=== PATIENT | female | born 1995 | race African-American/Black ===

== ENCOUNTER 2025-01-10 15:07 | Inpatient (IN) ==
[2025-01-10 16:27] LABS: Hematocrit (blood only) 27.1 % (37.0-47.0); Hemoglobin 8.6 g/dl (12.0-16.0); Immature Granulocytes # (auto) 0.01 K/uL (0.01-0.20); Immature Granulocytes % (auto) 0.1 %; Mean Corpuscular Hemoglobin 28.3 pg (25.0-34.0); Mean Corpuscular Volume 89.1 fL (80.0-100.0); Platelet Count 553 K/uL (130-400); RDW Standard Deviation 54.0 fL (36.4-46.3); Red Blood Count 3.04 M/uL (4.20-5.40); White Blood Count 7.24 K/ul (4.8-10.8)
[2025-01-10 17:02] LABS: INR 1.0 (0.9-1.1); Partial Thromboplastin Time 23 Seconds (21-31); Prothrombin Time 10.4 Seconds (9.0-12.0)
--- NOTE | 2025-01-10 18:16 | Ultrasound Report ---
Clinical History: Cramping and abnormal bleeding Findings: Transabdominal and transvaginal pelvic sonography was performed. The endometrial stripe is thickened and heterogeneous, measuring approximately 2.5 cm. No uterine mass lesion is seen. Overall, the uterus measures 8.4 x 6.4 x 5.1 cm in size. There are nabothian cysts. There is some fluid within the endocervical and vaginal canals The left ovary measures 3.2 x 1.9 x 1.2 cm and contains small follicles. The right ovary measures 2.6 x 1.9 x 1.7 cm and contains small follicles also. Normal vascular flow was seen within both ovaries There is a small amount of free pelvic fluid. Impression: 1. Thickened and heterogeneous endometrium. This could be due to blood products, though endometrial hyperplasia, polyp, or carcinoma cannot be excluded. A follow-up ultrasound could be obtained to ensure resolution of this appearance 2. Nabothian cysts 3. Normal-appearing ovaries 4. Small amount of free pelvic fluid, which may be physiologic ACT 112: Positive. There are findings on this exam that require communication between the performing entity and the patient following Patient Test Result Information Act ([place] ACT 112) guidelines. Electronically signed by Nik Narvaez 01-10-2025 6:15 PM
[2025-01-10] MEDS: SODIUM CHLORIDE 0.9% 1,000 ML IV ONE (19:33)
--- NOTE | 2025-01-10 19:33 | Emergency Department Note ---
History of Present Illness General Chief complaint: Vaginal Bleeding Stated complaint: FATIGUE, LIGHT HEAD, HEAVY BLEEDING, ELEV HR Time Seen by Provider: 01/10/25 19:23 History of Present Illness This is a 29-year-old female who presents to the emergency department via private vehicle with complaints of "fatigue, lightheadedness, vaginal bleeding, elevated heart rate". The patient notes intermittent vaginal bleeding over the past few months. She does note history of blood transfusions secondary to vaginal bleeding. She feels chilled but denies any fevers, nausea or vomiting. Patient notes that she currently is on norethindrone acetate 5mg daily. She has been compliant with this medication. She states that over the past 3 days vaginal bleeding has increased in regard to volume. She states that when she stands clots will pass that she describes as being the size of her "fist". She notes that the bleeding seems to improve when she is sitting or laying supine. No anticoagulant use. No aspirin use. No NSAID use. No history of bleeding disorders. Home Medications Medication Instructions Recorded Confirmed Type folic acid 1 mg tablet 1 mg PO QAM #30 tabs 09/22/24 01/10/25 Rx ferrous sulfate 325 mg (65 mg 325 mg PO DAILY 10/09/24 01/10/25 History iron) tablet,delayed release norethindrone acetate 5 mg tablet 5 mg PO DAILY #30 tabs 12/12/24 01/10/25 Rx Allergies Allergy/AdvReac Type Severity Reaction Status Date / Time No Known Allergies Allergy Verified 11/20/24 13:38 Past Med/Surg History Problem List (Updated 01/10/25 @ 21:42 by Danyel Thao PA-C) Vaginal bleeding (Acute) Menorrhagia (Acute) Acute blood loss anemia (Acute) Medical History PCOS (polycystic ovarian syndrome) Surgical History S/P dilation and curettage reports fibroid removal Social History Smoking Status: Never smoker Second Hand Exposure: No; Do You Dip or Chew Tobacco: No; Hx Alcohol Use: Yes Alcohol type: wine and hard liquor Hx Substance Use: Yes Last Used Substance: Days (ago) Preferred Language: [place] Communication Ability: Effective Line Repairer Required: No Beliefs That Will Affect Care: None Current Living Situation: Significant Other Current Living Situation Comment: Figreta and daughter Feels Safe at Home: Yes Assistive Devices: None Review of Systems A total of 10 systems reviewed and were otherwise negative Physical Exam Vital Signs Vital Signs - 24 hr 01/10/25 15:40 01/10/25 19:21 01/10/25 22:16 Temperature 36.7 C 37.1 C Temperature Source Temporal Artery Scan Oral Pulse Rate 125 H 106 H Pulse Rate [Apical] 130 H Pulse Rhythm Regular Pulse Rhythm [Apical] Regular Pulse Strength Normal Pulse Strength [Apical] Normal Respiratory Rate 20 18 20 Respiratory Effort / Characteristics Non-Labored Spontaneous Respiratory Depth Normal Respiratory Pattern Regular Blood Pressure 127/78 113/81 Blood Pressure [Right Arm] 134/84 Blood Pressure Mean 94 91 Blood Pressure Mean [Right Arm] 100 Blood Pressure Position Sitting Blood Pressure Position [Right Arm] Sitting Pulse Oximetry 100 100 100 Oxygen Delivery Method Room Air Room Air Oxygen Flow Rate 0 Sepsis Recent Fever Within 48 Hours No Sepsis New/Unexplained Change in Mental Status N/A Sepsis Action Taken by Nursing No Action Required VITAL SIGNS - Vital signs and nursing notes were reviewed. Tachycardic, otherwise stable and afebrile. GENERAL -29-year-old female appearing her stated age who is in no acute distress. Communicates well with provider and answers questions appropriately. SKIN - Without rashes. No meningeal or petechial rash HEAD - NC/AT. EYES - PERRL with EOMI bilaterally. Sclera anicteric. NECK - No nuchal rigidity. LUNGS - CTA CARDIAC - RRR ABDOMEN - Abdominal contour normal without pulsations or visible masses. BS normoactive all four quadrants. No tenderness, palpable masses, hepatosplenomegaly, or ascites noted. EXTREMITIES - No clubbing or peripheral cyanosis. +5/5 strength noted in UE/LE bilaterally. NEUROLOGIC - Cranial nerves II through XII grossly intact. PSYCH -alert, oriented and pleasant on exam Course Administered Medications Discontinued Medications Sodium Chloride (Nss) 1,000 mls @ 999 mls/hr IV .Q1H1M ONE Stop: 01/10/25 20:29 Last Infusion: 01/10/25 20:36 Dose: Infused Documented By: Admin: 01/10/25 19:33 Dose: 999 mls/hr Documented By: MUSA Critical Care Time As this patient is actively experiencing vaginal bleeding with downtrending hemoglobin requiring IV transfusion, I have personally spent about 52 minutes of critical care time in the direct management of this patient. This includes bedside care, interpretation of diagnostic studies, and testing, discussion with consultants, patient, and family members, and other required patient management activities. This 52 minutes is in excess of all separately billable procedures. Medical Decision Making Laboratory Data 01/10/25 20:42 01/10/25 16:14 Lab Results 01/10/25 01/10/25 01/10/25 Range/Units 16:14 16:20 19:21 WBC 7.24 (4.8-10.8) K/ul RBC 3.04 L (4.20-5.40) M/uL Hgb 8.6 L (12.0-16.0) g/dl Hct 27.1 L (37.0-47.0) % MCV 89.1 (80.0-100.0) fL MCH 28.3 (25.0-34.0) pg MCHC 31.7 L (32.0-36.0) g/dL RDW Std Deviation 54.0 H (36.4-46.3) fL RDW Coeff of Shashi 16.8 H (11.5-14.5) % Plt Count 553 H (130-400) K/uL MPV 9.1 L (9.4-12.4) fL Immature Gran % (Auto) 0.1 % Neut % (Auto) 66.7 % Lymph % (Auto) 20.9 % [place] % (Auto) 10.9 % Eos % (Auto) 0.6 % Baso % (Auto) 0.8 % Neut # (Auto) 4.83 (1.40-6.50) K/uL Lymph # (Auto) 1.51 (1.20-3.40) K/uL [place] # (Auto) 0.79 H (0.11-0.59) K/uL Eos # (Auto) 0.04 (0.00-0.50) K/uL Baso # (Auto) 0.06 (0.00-0.20) K/uL Immature Gran # (Auto) 0.01 (0.01-0.20) K/uL PT 10.4 (9.0-12.0) Seconds INR 1.0 (0.9-1.1) APTT 23 (21-31) Seconds PTT Ratio 0.9 Sodium 135 L (136-145) mmol/L Potassium 4.6 (3.5-5.1) mmol/L Chloride 99 (98-107) mmol/L Carbon Dioxide 21 (21-32) mmol/L Anion Gap 15 H (3-11) BUN 8 (6-23) mg/dl Creatinine 0.60 (0.6-1.2) mg/dl Est Cr Clr Drug Dosing 109.4 ml/min eGFR 124.53 BUN/Creatinine Ratio 13.3 (10-20) Glucose 69 L (70-99(Fasting)) mg/dl Calcium 9.6 (8.6-10.3) mg/dl Total Bilirubin 0.4 (0.2-1.0) mg/dl AST 58 H (13-39) U/L ALT 45 (7-52) U/L Alkaline Phosphatase 47 (34-104) U/L Total Protein 7.7 (6.0-8.3) gm/dl Albumin 4.5 (3.4-5.0) gm/dl Globulin 3.2 (2.5-4.0) gm/dl Albumin/Globulin Ratio 1.4 (0.9-2) HCG, Qual Negative (Negative) Urine Color Red Urine Appearance Turbid A (Clear) Urine pH 6.0 (4.5-7.5) Ur Specific [place] >= 1.030 (1.000-1.030) Urine Protein 2+ H (Negative) Urine Glucose (UA) Trace H (Negative) Urine Ketones 3+ H (Negative) Urine Blood 3+ H (Negative) Urine Nitrite Negative (Negative) Urine Bilirubin 2+ H (Negative) Urine Urobilinogen Negative (Negative) Ur Leukocyte Esterase Negative (Negative) Urine RBC >20 H (0-2) /hpf Urine WBC 0-5 (0-5) /hpf Ur Epithelial Cells 0-2 (0-2) /hpf Urine Bacteria None Seen (None Seen) Urine Mucus Present A (None Prsent) Urine Comment Blood Type O Negative Antibody Screen NEGATIVE Crossmatch See Detail 01/10/25 Range/Units 20:42 WBC (4.8-10.8) K/ul RBC (4.20-5.40) M/uL Hgb 7.3 L (12.0-16.0) g/dl Hct 22.3 L (37.0-47.0) % MCV (80.0-100.0) fL MCH (25.0-34.0) pg MCHC (32.0-36.0) g/dL RDW Std Deviation (36.4-46.3) fL RDW Coeff of Shashi (11.5-14.5) % Plt Count (130-400) K/uL MPV (9.4-12.4) fL Immature Gran % (Auto) % Neut % (Auto) % Lymph % (Auto) % [place] % (Auto) % Eos % (Auto) % Baso % (Auto) % Neut # (Auto) (1.40-6.50) K/uL Lymph # (Auto) (1.20-3.40) K/uL [place] # (Auto) (0.11-0.59) K/uL Eos # (Auto) (0.00-0.50) K/uL Baso # (Auto) (0.00-0.20) K/uL Immature Gran # (Auto) (0.01-0.20) K/uL PT (9.0-12.0) Seconds INR (0.9-1.1) APTT (21-31) Seconds PTT Ratio Sodium (136-145) mmol/L Potassium (3.5-5.1) mmol/L Chloride (98-107) mmol/L Carbon Dioxide (21-32) mmol/L Anion Gap (3-11) BUN (6-23) mg/dl Creatinine (0.6-1.2) mg/dl Est Cr Clr Drug Dosing ml/min eGFR BUN/Creatinine Ratio (10-20) Glucose (70-99(Fasting)) mg/dl Calcium (8.6-10.3) mg/dl Total Bilirubin (0.2-1.0) mg/dl AST (13-39) U/L ALT (7-52) U/L Alkaline Phosphatase (34-104) U/L Total Protein (6.0-8.3) gm/dl Albumin (3.4-5.0) gm/dl Globulin (2.5-4.0) gm/dl Albumin/Globulin Ratio (0.9-2) HCG, Qual (Negative) Urine Color Urine Appearance (Clear) Urine pH (4.5-7.5) Ur Specific [place] (1.000-1.030) Urine Protein (Negative) Urine Glucose (UA) (Negative) Urine Ketones (Negative) Urine Blood (Negative) Urine Nitrite (Negative) Urine Bilirubin (Negative) Urine Urobilinogen (Negative) Ur Leukocyte Esterase (Negative) Urine RBC (0-2) /hpf Urine WBC (0-5) /hpf Ur Epithelial Cells (0-2) /hpf Urine Bacteria (None Seen) Urine Mucus (None Prsent) Urine Comment Blood Type Antibody Screen Crossmatch Imaging Data Radiologist's Impression: Pelvis Ultrasound 01/10/25 16:15 Clinical History: Cramping and abnormal bleeding Findings: Transabdominal and transvaginal pelvic sonography was performed. The endometrial stripe is thickened and heterogeneous, measuring approximately 2.5 cm. No uterine mass lesion is seen. Overall, the uterus measures 8.4 x 6.4 x 5.1 cm in size. There are nabothian cysts. There is some fluid within the endocervical and vaginal canals The left ovary measures 3.2 x 1.9 x 1.2 cm and contains small follicles. The right ovary measures 2.6 x 1.9 x 1.7 cm and contains small follicles also. Normal vascular flow was seen within both ovaries There is a small amount of free pelvic fluid. Impression: 1. Thickened and heterogeneous endometrium. This could be due to blood products, though endometrial hyperplasia, polyp, or carcinoma cannot be excluded. A follow-up ultrasound could be obtained to ensure resolution of this appearance 2. Nabothian cysts 3. Normal-appearing ovaries 4. Small amount of free pelvic fluid, which may be physiologic ACT 112: Positive. There are findings on this exam that require communication between the performing entity and the patient following Patient Test Result Information Act ([place] ACT 112) guidelines. Electronically signed by Nik Narvaez 01-10-2025 6:15 PM MDM Narrative Patient was seen and evaluated as above in room B04. Review was performed of triage nursing notes and vital signs. I did review pertinent previous visits and patient history. After obtaining a thorough history and physical examination the above work up was performed. Patient presents to us today for evaluation of ongoing vaginal bleeding. The patient does note she had laboratory studies performed earlier today revealing a hemoglobin of 8.3. She does note some lower pelvic cramping but states this is typical with her vaginal bleeding. Otherwise no abdominal pain. No fevers. Patient already underwent a pelvic ultrasound prior to my evaluation. This did show a thickened and heterogeneous endometrium. Remainder of the findings are as above. An EKG was performed prior to me evaluating the patient. This revealed sinus tachycardia at a rate of 106 bpm. QTc 425. QRS 62 with short DE. Patient does note that she is going to see cardiology here in the next week or so as she just underwent an event monitor. Options of care were discussed with the patient. IV access was established. Labs were drawn. There is no leukocytosis. Hemoglobin here on recheck 8.6. There is thrombocytosis noted with platelet count of 553. Coags normal. Metabolic panel reveals no evidence of kidney or liver failure. There is mild elevation of the AST at 58. hCG returned negative. Urinalysis without sign of infection. Some of the metabolic panel at this time is still pending noting current downtime in the laboratory. Patient was given 1 L IV fluid as she does clinically appear dry. Recheck hemoglobin 7.3, likely component of dilution will but patient is still with vaginal bleeding. The heart rate did improve and went from about 130-107. I did speak with Dr. Bernal, gynecology at 2043 HRS on 01/10/2025. Plan at this time with a downtrending hemoglobin with active bleeding is to proceed with transfusion, with inpatient management. Appropriate consent form was completed. Please refer to further documentation regarding her stay. GCS: 15 In the evaluation and treatment of this patient the following differential diagnoses were entertained: Acute blood loss anemia, underlying bleeding disorder, malignancy, infection, among others Impression & Plan Acute blood loss anemia, Vaginal bleeding Discharge Plan Visit Data Chief Complaint: Vaginal Bleeding Stated Complaint: FATIGUE, LIGHT HEAD, HEAVY BLEEDING, ELEV HR ED Provider: Rob Ross ED Midlevel Provider: Danyel Thao Discharge Problem: Acute blood loss anemia, Vaginal bleeding Patient Disposition: Admitted As Inpatient Condition: Good Forms Stand Alone Forms: My [facility] [employer] Prescriptions Prescriptions: No Action norethindrone acetate 5 mg tablet 5 mg PO DAILY Qty: 30 2RF ferrous sulfate 325 mg (65 mg iron) tablet,delayed release (DR/EC) 325 mg PO DAILY folic acid 1 mg Tablet 1 mg PO QAM Qty: 30 0RF Referrals Referrals: Luz Powell CRNP [Primary Care Provider] -
[2025-01-10 19:57] LABS: Pregnancy Test, Serum Negative (Negative)
[2025-01-10 20:07] LABS: Alanine Aminotransferase 45.0 U/L (7-52); Albumin Globulin Ratio 1.4 (0.9-2); Alkaline Phosphatase 47.0 U/L (34-104); Bilirubin,Total 0.4 mg/dl (0.2-1.0); Blood Urea Nitrogen 8.0 mg/dl (6-23); Calcium 9.6 mg/dl (8.6-10.3); Carbon Dioxide 21.0 mmol/L (21-32); Creatinine Clr Calc Pharmacy 109.4 ml/min; Globulin 3.2 gm/dl (2.5-4.0); Glucose 69.0 mg/dl (70-99(Fasting)); Total Protein 7.7 gm/dl (6.0-8.3)
[2025-01-10 20:09] LABS: Appearance Urine Turbid (Clear); Glucose Urine UA Trace (Negative)
[2025-01-10 20:13] LABS: Epithelial Cell Urine 0-2 /hpf (0-2)
[2025-01-10 21:00] LABS: Hematocrit (blood only) 22.3 % (37.0-47.0); Hemoglobin 7.3 g/dl (12.0-16.0)
[2025-01-10] MEDS ORDERED: SODIUM CHLORIDE 0.9% 100 ML IV PRN (21:12)
--- NOTE | 2025-01-10 21:39 | OB/GYN Consultation ---
Date of Consultation January 10, 2025 Assessment & Plan (1) Acute blood loss anemia: Plan Admit, 2u pRBC, Aygestin taper. Patient may hold at 2 tablets / 10mg aygestin per day or go back to 1 tablet / 5mg aygestin per day as she completes the taper, depending on whether bleeding re-worsens and what manager intermediate management she and her existing DIESEL MECHANIC decide upon. History of Present Illness History of Present Illness 29yo established patient of Dr. Koo with h/o menorrhagia. She had recent benign proliferative embx and has been on 5mg daily aygestin daily since at least 1 month ago. Despite this medicine being taken each day as prescribed, bleeding began 12/28 and continued through today. Dwayne presents to ED with vaginal bleeding that has been heavy over the past 24 hours, at times soaking 1 pad per hour, and recently slowing to 1 pad per 3-4 hours. She has tachycardia which is symptomatic, though is awake and alert sitting up without c/o presyncope in this position in her ER bed. Denies SOB/CP. Tachycardia improved from 130 to 100-107 in the ER with a liter of fluids, but her Hgb has gone from 8.6 to 7.3 after rehydration. She has previously received blood transfusion for a Hgb of 6.8, which was in August 2024, and when offered transfusion today, would be agreeable to receiving blood again. Allergies Allergy/AdvReac Type Severity Reaction Status Date / Time No Known Allergies Allergy Verified 11/20/24 13:38 Home Medications Medication Instructions Recorded Confirmed Type folic acid 1 mg tablet 1 mg PO QAM #30 tabs 09/22/24 01/10/25 Rx ferrous sulfate 325 mg (65 mg 325 mg PO DAILY 10/09/24 01/10/25 History iron) tablet,delayed release norethindrone acetate 5 mg tablet 5 mg PO DAILY #30 tabs 12/12/24 01/10/25 Rx Patient History Medical History PCOS (polycystic ovarian syndrome) Surgical History S/P dilation and curettage reports fibroid removal Social History Smoking Status: Never smoker Second Hand Exposure: No; Do You Dip or Chew Tobacco: No; Hx Alcohol Use: Yes Alcohol type: wine and hard liquor Hx Substance Use: Yes Last Used Substance: Days (ago) Preferred Language: Upper Sorbian Communication Ability: Effective Jewel Oliving Machine Operator Required: No Beliefs That Will Affect Care: None Current Living Situation: Significant Other Current Living Situation Comment: Fiance and daughter Feels Safe at Home: Yes Assistive Devices: None Physical Exam Constitutional: WD/WN, vitals as above Eyes: conjunctiva pale ENMT: external ear and nose normal, oropharynx normal Neck: supple Respiratory: normal respiratory effort and able to speak in complete sentences; no respiratory distress Cardiovascular: Tachycardic with regular rhythm Gastrointestinal (Abdomen): NTTP / ND Musculoskeletal: no cyanosis or clubbing, extremities motor strength 5/5 Skin: no rashes, warm and dry Pale facial color compared to her baseline, confirmed by her support person Psychiatric: A+Ox3, euthymic affect Genitourinary: Pelvic imaging reviewed, internal exam not performed. Results & Data Vital Signs (Past 12 Hours) Vital Signs Temp Pulse Pulse Resp BP BP Pulse Ox 01/10/25 19:21 130 H 18 134/84 100 01/10/25 15:40 98.1 F 125 H 20 127/78 100 O2 Del Method 01/10/25 19:21 Room Air 01/10/25 15:40 Room Air Diagnostic Findings Laboratory Results WBC 7.24 K/ul (4.8-10.8) 01/10/25 16:14 RBC 3.04 M/uL (4.20-5.40) L 01/10/25 16:14 Hgb 7.3 g/dl (12.0-16.0) L 01/10/25 20:42 Hct 22.3 % (37.0-47.0) L 01/10/25 20:42 MCV 89.1 fL (80.0-100.0) 01/10/25 16:14 MCH 28.3 pg (25.0-34.0) 01/10/25 16:14 MCHC 31.7 g/dL (32.0-36.0) L 01/10/25 16:14 RDW Std Deviation 54.0 fL (36.4-46.3) H 01/10/25 16:14 RDW Coeff of Shashi 16.8 % (11.5-14.5) H 01/10/25 16:14 Plt Count 553 K/uL (130-400) H 01/10/25 16:14 MPV 9.1 fL (9.4-12.4) L 01/10/25 16:14 Immature Gran % (Auto) 0.1 % 01/10/25 16:14 Neut % (Auto) 66.7 % 01/10/25 16:14 Lymph % (Auto) 20.9 % 01/10/25 16:14 [place] % (Auto) 10.9 % 01/10/25 16:14 Eos % (Auto) 0.6 % 01/10/25 16:14 Baso % (Auto) 0.8 % 01/10/25 16:14 Neut # (Auto) 4.83 K/uL (1.40-6.50) 01/10/25 16:14 Lymph # (Auto) 1.51 K/uL (1.20-3.40) 01/10/25 16:14 [place] # (Auto) 0.79 K/uL (0.11-0.59) H 01/10/25 16:14 Eos # (Auto) 0.04 K/uL (0.00-0.50) 01/10/25 16:14 Baso # (Auto) 0.06 K/uL (0.00-0.20) 01/10/25 16:14 Immature Gran # (Auto) 0.01 K/uL (0.01-0.20) 01/10/25 16:14 PT 10.4 Seconds (9.0-12.0) 01/10/25 16:14 INR 1.0 (0.9-1.1) 01/10/25 16:14 APTT 23 Seconds (21-31) 01/10/25 16:14 PTT Ratio 0.9 01/10/25 16:14 Carbon Dioxide 21 mmol/L (21-32) 01/10/25 16:14 BUN 8 mg/dl (6-23) 01/10/25 16:14 Creatinine 0.60 mg/dl (0.6-1.2) 01/10/25 16:14 Est Cr Clr Drug Dosing 109.4 ml/min 01/10/25 16:14 eGFR 124.53 01/10/25 16:14 BUN/Creatinine Ratio 13.3 (10-20) 01/10/25 16:14 Glucose 69 mg/dl (70-99(Fasting)) L 01/10/25 16:14 Calcium 9.6 mg/dl (8.6-10.3) 01/10/25 16:14 Total Bilirubin 0.4 mg/dl (0.2-1.0) 01/10/25 16:14 AST 58 U/L (13-39) H 01/10/25 16:14 ALT 45 U/L (7-52) 01/10/25 16:14 Alkaline Phosphatase 47 U/L (34-104) 01/10/25 16:14 Total Protein 7.7 gm/dl (6.0-8.3) 01/10/25 16:14 Albumin 4.5 gm/dl (3.4-5.0) 01/10/25 16:14 Globulin 3.2 gm/dl (2.5-4.0) 01/10/25 16:14 Albumin/Globulin Ratio 1.4 (0.9-2) 01/10/25 16:14 HCG, Qual Negative (Negative) 01/10/25 16:14 Urine Color Red 01/10/25 19:21 Urine Appearance Turbid (Clear) A 01/10/25 19:21 Urine pH 6.0 (4.5-7.5) 01/10/25 19:21 Ur Specific [place] >= 1.030 (1.000-1.030) 01/10/25 19:21 Urine Protein 2+ (Negative) H 01/10/25 19:21 Urine Glucose (UA) Trace (Negative) H 01/10/25 19:21 Urine Ketones 3+ (Negative) H 01/10/25 19:21 Urine Blood 3+ (Negative) H 01/10/25 19:21 Urine Nitrite Negative (Negative) 01/10/25 19:21 Urine Bilirubin 2+ (Negative) H 01/10/25 19:21 Urine Urobilinogen Negative (Negative) 01/10/25 19:21 Ur Leukocyte Esterase Negative (Negative) 01/10/25 19:21 Urine RBC >20 /hpf (0-2) H 01/10/25 19:21 Urine WBC 0-5 /hpf (0-5) 01/10/25 19:21 Ur Epithelial Cells 0-2 /hpf (0-2) 01/10/25 19:21 Urine Bacteria None Seen (None Seen) 01/10/25 19:21 Urine Mucus Present (None Prsent) A 01/10/25 19:21 Urine Comment 01/10/25 19:21 Blood Type O Negative 01/10/25 16:20 Antibody Screen NEGATIVE 01/10/25 16:20 Crossmatch See Detail 01/10/25 16:20 Impressions Pelvis Ultrasound 01/10/25 16:15 Clinical History: Cramping and abnormal bleeding Findings: Transabdominal and transvaginal pelvic sonography was performed. The endometrial stripe is thickened and heterogeneous, measuring approximately 2.5 cm. No uterine mass lesion is seen. Overall, the uterus measures 8.4 x 6.4 x 5.1 cm in size. There are nabothian cysts. There is some fluid within the endocervical and vaginal canals The left ovary measures 3.2 x 1.9 x 1.2 cm and contains small follicles. The right ovary measures 2.6 x 1.9 x 1.7 cm and contains small follicles also. Normal vascular flow was seen within both ovaries There is a small amount of free pelvic fluid. Impression: 1. Thickened and heterogeneous endometrium. This could be due to blood products, though endometrial hyperplasia, polyp, or carcinoma cannot be excluded. A follow-up ultrasound could be obtained to ensure resolution of this appearance 2. Nabothian cysts 3. Normal-appearing ovaries 4. Small amount of free pelvic fluid, which may be physiologic ACT 112: Positive. There are findings on this exam that require communication between the performing entity and the patient following Patient Test Result Information Act ([place] ACT 112) guidelines. Electronically signed by Nik Narvaez 01-10-2025 6:15 PM
[2025-01-10 21:57] LABS: Anion Gap 15.0 (3-11); Chloride 99.0 mmol/L (98-107); Potassium 4.6 mmol/L (3.5-5.1); Sodium 135.0 mmol/L (136-145)
[2025-01-10 23:18] VITALS: RESP 18
[2025-01-11 01:17] VITALS: O2SAT 100
[2025-01-11] MEDS: NORETHINDRONE 5 MG TAB PO SCH (03:20)
[2025-01-11 06:32] LABS: Hematocrit (blood only) 28.6 % (37.0-47.0); Hemoglobin 9.7 g/dl (12.0-16.0)
--- NOTE | 2025-01-11 08:06 | Progress Note ---
Date of Service January 11, 2025 Assessment & Plan (1) Acute blood loss anemia: Plan: Improved with transfusion to Hgb 9.7, and blood losses slowing appropriately with aygestin taper. F/U in office 2-4 weeks with established [employer] SUPERVISOR for nursing home care plan. Admission and Anticipated Discharge Date Admission Date: January 10, 2025 Subjective Patient seen this morning, feels and looks so much better than she did on arrival. No presyncope or dizziness. No palpitations, no CP, no SOB. She notes her bleeding is greatly decreased from admission. Physical Exam Physical Exam: NAD Skin and Lip color normalized, no longer pale Sitting up in bed and smiling, talkative Results & Data Vital Signs (Past 12 Hours) Vital Signs Temp Pulse Pulse Resp BP BP Pulse Ox 01/11/25 04:15 98.4 F 90 18 131/81 100 01/11/25 03:05 98.2 F 97 H 18 126/77 100 01/11/25 03:05 98.2 F 97 H 18 126/77 100 01/11/25 02:01 99.0 F 85 18 122/75 100 01/11/25 01:31 98.8 F 87 18 123/81 100 01/11/25 01:16 98.2 F 97 H 18 124/94 100 01/11/25 00:54 99.3 F 97 H 18 123/80 100 01/11/25 00:20 98.6 F 97 H 18 125/76 98 01/11/25 00:20 98.6 F 97 H 18 125/76 98 01/11/25 00:04 01/10/25 23:17 98.2 F 99 H 18 133/74 100 01/10/25 22:48 99.0 F 96 H 20 121/83 100 01/10/25 22:33 99.0 F 93 H 18 121/66 100 01/10/25 22:16 98.8 F 106 H 20 113/81 100 O2 Del Method O2 Flow Rate 01/11/25 04:15 01/11/25 03:05 Room Air 01/11/25 03:05 01/11/25 02:01 01/11/25 01:31 01/11/25 01:16 01/11/25 00:54 01/11/25 00:20 Room Air 01/11/25 00:20 01/11/25 00:04 Room Air 01/10/25 23:17 01/10/25 22:48 0 01/10/25 22:33 0 01/10/25 22:16 0 Laboratory Results Laboratory Results - last 24 hr 01/10/25 01/10/25 01/10/25 16:14 16:20 19:21 WBC 7.24 RBC 3.04 L Hgb 8.6 L Hct 27.1 L MCV 89.1 MCH 28.3 MCHC 31.7 L RDW Std Deviation 54.0 H RDW Coeff of Shashi 16.8 H Plt Count 553 H MPV 9.1 L Immature Gran % (Auto) 0.1 Neut % (Auto) 66.7 Lymph % (Auto) 20.9 [place] % (Auto) 10.9 Eos % (Auto) 0.6 Baso % (Auto) 0.8 Neut # (Auto) 4.83 Lymph # (Auto) 1.51 [place] # (Auto) 0.79 H Eos # (Auto) 0.04 Baso # (Auto) 0.06 Immature Gran # (Auto) 0.01 PT 10.4 INR 1.0 APTT 23 PTT Ratio 0.9 Sodium 135 L Potassium 4.6 Chloride 99 Carbon Dioxide 21 Anion Gap 15 H BUN 8 Creatinine 0.60 Est Cr Clr Drug Dosing 109.4 eGFR 124.53 BUN/Creatinine Ratio 13.3 Glucose 69 L Calcium 9.6 Total Bilirubin 0.4 AST 58 H ALT 45 Alkaline Phosphatase 47 Total Protein 7.7 Albumin 4.5 Globulin 3.2 Albumin/Globulin Ratio 1.4 HCG, Qual Negative Urine Color Red Urine Appearance Turbid A Urine pH 6.0 Ur Specific [place] >= 1.030 Urine Protein 2+ H Urine Glucose (UA) Trace H Urine Ketones 3+ H Urine Blood 3+ H Urine Nitrite Negative Urine Bilirubin 2+ H Urine Urobilinogen Negative Ur Leukocyte Esterase Negative Urine RBC >20 H Urine WBC 0-5 Ur Epithelial Cells 0-2 Urine Bacteria None Seen Urine Mucus Present A Urine Comment Blood Type O Negative Antibody Screen NEGATIVE Crossmatch See Detail 01/10/25 01/11/25 20:42 05:59 WBC RBC Hgb 7.3 L 9.7 L Hct 22.3 L 28.6 L MCV MCH MCHC RDW Std Deviation RDW Coeff of Shashi Plt Count MPV Immature Gran % (Auto) Neut % (Auto) Lymph % (Auto) [place] % (Auto) Eos % (Auto) Baso % (Auto) Neut # (Auto) Lymph # (Auto) [place] # (Auto) Eos # (Auto) Baso # (Auto) Immature Gran # (Auto) PT INR APTT PTT Ratio Sodium Potassium Chloride Carbon Dioxide Anion Gap BUN Creatinine Est Cr Clr Drug Dosing eGFR BUN/Creatinine Ratio Glucose Calcium Total Bilirubin AST ALT Alkaline Phosphatase Total Protein Albumin Globulin Albumin/Globulin Ratio HCG, Qual Urine Color Urine Appearance Urine pH Ur Specific [place] Urine Protein Urine Glucose (UA) Urine Ketones Urine Blood Urine Nitrite Urine Bilirubin Urine Urobilinogen Ur Leukocyte Esterase Urine RBC Urine WBC Ur Epithelial Cells Urine Bacteria Urine Mucus Urine Comment Blood Type Antibody Screen Crossmatch PG Care Time/CCT Total # of Minutes Spent Total Time Spent with Patient: Total time spent is greater than 50% in coordination of care (as documented) at patient's floor/unit and/or counseling patient: Coding Level of Care Code 23721 SUB INP/OBS CARE 2/35MIN Diagnoses Acute blood loss anemia D62
[2025-01-11 08:12] VITALS: BP 135/84; TEMP 98.6
[2025-01-11] MEDS: FERROUS SULFATE 325 MG TAB PO SCH (08:13)
[2025-01-11 08:25] VITALS: PULSE 130
[2025-01-11] MEDS ORDERED: NORETHINDRONE 5 MG TAB PO SCH (09:00)
--- NOTE | 2025-01-12 16:41 | Discharge Summary ---
Date of Service January 12, 2025 Discharge Data Consultations 01/10/25 21:17 ED Decision to Admit Stat Hospital Course (1) Acute blood loss anemia: Improved with transfusion to Hgb 9.7, and blood losses slowing appropriately with aygestin taper. F/U in office 2-4 weeks with established DESOLDERER for halfway care plan. Coding Level of Care Code 37486 IN/OBS DISCH 30 MIN/LESS Diagnoses Acute blood loss anemia D62
== END 2025-01-11 09:59 | disposition home or self-care (01) | DRG 812 ==
LOC: ED 15:07 → 4E1 21:23